=== PATIENT | male | born 1950 | race Caucasian/White ===

== ENCOUNTER → 2019-09-05 | Outpatient (CLI) | payer MEDICARE ==
[~2019-09-05] MED LIST: RT-ALBUTEROL SULF 2.5 MG/3 ML PRE-MIX VIAL INH ONE
--- NOTE | 2019-09-05 10:34 | Diagnostic Imaging Report ---
PROCEDURE: CT chest without contrast. TECHNIQUE: Multiple contiguous axial images were obtained through the chest without the use of intravenous contrast. Auto Exposure Controls were utilized during the CT exam to meet ALARA standards for radiation dose reduction. INDICATION: Shortness of breath for 2 years. COMPARISON: None provided. FINDINGS: The heart size is within normal limits. No pericardial effusion is present. There is calcified aortic and coronary atherosclerotic plaque without evidence of aneurysm. There is no mediastinal, hilar, or axillary lymphadenopathy. Calcified mediastinal and right hilar lymph nodes are present. Severe emphysema is noted in the bilateral lung apices with large apical bulla bilaterally. Pleural thickening is noted along the lateral aspect of the upper left lung. Scattered calcified granulomas are noted. No suspicious pulmonary nodules or masses. There are no focal areas of consolidation. No central endobronchial obstructing lesions are identified. There is no pleural effusion or pneumothorax. The osseous structures demonstrate no acute abnormalities. Limited views of the upper abdominal structures demonstrate no acute abnormalities. Both adrenal glands are unremarkable. IMPRESSION: 1. Severe emphysema in the lung apices with apical bulla bilaterally. 2. No focal consolidation or suspicious pulmonary nodules. 3. Sequelae of prior granulomatous disease. Dictated by: Dictated on workstation # [id number]
== END ==
LOC: RAD 09:39
PROVIDERS: ATTEND Nurse Practitioner Family
DX: J43.9 Emphysema, unspecified (principal); L92.9 Granulomatous disorder of the skin and subcutaneous tissue, unspecified; J30.9 Allergic rhinitis, unspecified; Z72.0 Tobacco use
CPT/HCPCS: 71250; 94060; 94640; 94726; 94729